=== PATIENT | male | born 1995 | race Caucasian/White ===

== ENCOUNTER 2017-03-08 17:43 | Emergency (ER) | payer SELFPAY ==
[~2017-03-08] VITALS: Ht 167.6 cm; Wt 114.0 kg
[2017-03-08 17:43] VITALS: BP 143/78
== END 2017-03-08 18:42 | disposition home or self-care (01) ==
LOC: M ED 17:43
DX: Z20.2 Contact with and (suspected) exposure to infections with a predominantly sexual mode of transmission (principal)

== ENCOUNTER → 2019-10-02 | Outpatient (REF) | payer SELFPAY | LOC: M LAB REF 09:54 | PROVIDERS: ATTEND Physician Assistant | DX: N50.9 Disorder of male genital organs, unspecified (principal) ==

== ENCOUNTER 2024-02-11 00:32 | Emergency (ER) | payer SELFPAY ==
[~2024-02-11] VITALS: Ht 170.2 cm; Wt 113.8 kg
[2024-02-11 00:33] VITALS: BP 173/98; TEMP 98; O2SAT 100
== END 2024-02-11 01:39 | disposition left against medical advice (07) ==
LOC: M ED 00:32
DX: Z53.21 Procedure and treatment not carried out due to patient leaving prior to being seen by health care provider (principal)

== ENCOUNTER 2025-04-06 22:22 | Emergency (ER) | payer OTHER, SELFPAY ==
[~2025-04-06] VITALS: Ht 167.6 cm; Wt 108.0 kg
[2025-04-07 01:22] LABS: BASO # 0.1 10^3/uL (0.0-0.2); BASO % 0.6 % (0.0-1.0); EOS # 0.4 10^3/uL (0.0-0.5); EOS % 3.6 % (0.0-3.0); LYMPH # 3.5 10^3/uL (1.5-5.0); LYMPH % 32.6 % (24.0-44.0); MONO # 0.7 10^3/uL (0.0-0.8); MONO % 6.2 % (2.0-8.0); NEUTROPHILS # 6.1 10^3/uL (1.5-8.5); NEUTROPHILS % 56.6 % (36.0-66.0); PLATELET COUNT, AUTOMATED 351 10^3/uL (150-450)
[2025-04-07 01:47] LABS: CALCIUM LEVEL 9.6 MG/DL (8.5-10.1); CARBON DIOXIDE LEVEL 31 MMOL/L (20-31); CHLORIDE LEVEL 105 MMOL/L (98-107); CK-MB VALUE MASS < 1.0 NG/ML (<3.6); CPK CREATINE PHOSPHOKINASE 58 U/L (46-171); CREATININE FOR GFR 0.89 MG/DL (0.70-1.30); GLOMERULAR FILTRATION RATE > 90.0 (>60); MAGNESIUM LEVEL 2.2 MG/DL (1.8-2.4); POTASSIUM SERUM 4.4 MMOL/L (3.5-5.1); SODIUM LEVEL 144 MMOL/L (136-145)
[2025-04-07 02:30] VITALS: BP 119/61; TEMP 97.3; O2SAT 93
== END 2025-04-07 02:40 | disposition home or self-care (01) ==
LOC: M ED 22:22
DX: I16.0 Hypertensive urgency (principal); R04.0 Epistaxis; R51.9 Headache, unspecified